=== PATIENT | female | born 1995 | race Caucasian/White ===

== ENCOUNTER 2020-03-01 15:51 | Inpatient (IN) | payer OTHER ==
[2020-03-01] MEDS ORDERED: Betamethasone Acetate/Betamethasone Sod Phosphate 30 MG/5 ML MDV IM ONE (17:31)
[2020-03-01] MEDS ORDERED: Labetalol 100 MG Tab PO ONE (17:37)
[2020-03-01] MEDS ORDERED: Nalbuphine 10 MG/ML Syringe IVPUSH PRN (17:38)
[2020-03-01] MEDS ORDERED: Sodium Chloride 0.9% 10 ML Syringe FLUSH PRN (17:38)
[2020-03-01] MEDS ORDERED: Magnesium Sulfate/Water 2 GM in Premix Bag 1 BAG IV ONE (17:38)
[2020-03-01] MEDS ORDERED: Magnesium Sulfate/Water 4 GM in Premix Bag 1 BAG IV ONE (17:38)
[2020-03-01] MEDS ORDERED: Ampicillin 2 GM in Sodium Chloride 0.9% 100 ML IV ONE (17:38)
[2020-03-01] MEDS ORDERED: Calcium Gluconate 10% 1 GM/10 ML SDV IV PRN (17:38)
[2020-03-01] MEDS ORDERED: Misoprostol 100 MCG Tab VAG PRN (17:38)
[2020-03-01] MEDS ORDERED: Ondansetron 4 MG/2 ML SDV IVPUSH PRN (17:38)
[2020-03-01] MEDS ORDERED: Ampicillin 1 GM in Sodium Chloride 0.9% 100 ML IV SCH (17:45)
[2020-03-01] MEDS ORDERED: Oxytocin/Lactated Ringers 10 UNIT/1,000 ML BAG IV SCH ×2 (17:45)
--- NOTE | 2020-03-01 17:47 | PCM.LDHP ---
L&D History of Present Illness - General Date of Service: 03/01/20 Admit Problem/Dx: Patient Status Order with Admit Dx/Problem 03/01/20 17:38 Patient Status [ADT] Routine Admission Diagnosis/Problem Admission Diagnosis/Problem Source of Information: Patient History Limitations: Reports: No Limitations - History of Present Illness Introduction:: Patient 25 y/o at 36 2/7 wks who presents from clinic for further monitoring. Was seen for her routine NST/appt for CHTN and was found to have a severe range BP and then several upper limit of mild range pressures. Initially in clinic was feeling well, but now notes a slight frontal headache she rates as a 4/10. Not sure if might be because she's hungry. No vision changes. No RUQ pain - Related Data Allergies/Adverse Reactions: Allergies Allergy/AdvReac Type Severity Reaction Status Date / Time No Known Allergies Allergy Verified 03/01/20 18:01 Past Medical History Cardiovascular History: Reports: Hypertension [employer]ENT History: Reports: : 1 Para: 0 LMP (Approximate): - Past Surgical History HEENT Surgical History: Reports: Naso-Sinus Surgery, Oral Surgery Social & Family History - Tobacco Use Smoking Status *Q: Never Smoker - Alcohol Use Alcohol Use History: No - Recreational Drug Use Recreational Drug Use: No H&P Review of Systems - Review of Systems: Review Of Systems: See Below General: Reports: No Symptoms Pulmonary: Reports: No Symptoms Cardiovascular: Reports: No Symptoms Gastrointestinal: Reports: No Symptoms Genitourinary: Reports: No Symptoms Musculoskeletal: Reports: No Symptoms Psychiatric: Reports: No Symptoms Neurological: Reports: Headache L&D Exam - Exam Exam: See Below - OB Specific Contraction Intensity: Irritability Movement: Active Heart Tones: Present Heart Tones per Min: 130 Heart Rate (FHR) Variability: Moderate (6-25 bmp) Presentation: Vertex - Joyner Score Joyner Score Cervix Position: Midposition Joyner Score Consistency: Medium Joyner Score Effacement: 51-70% Joyner Score Dilation: 1-2 cm Joyner Score 's Station: -2 Joyner Score Total: 6 - Exam General: Alert, Oriented, Cooperative Lungs: Clear to Auscultation, Normal Respiratory Effort Cardiovascular: Regular Rate, Regular Rhythm GI/Abdominal Exam: Soft, Non-Tender Genitourinary: Normal external exam Extremities: Normal Inspection Skin: Warm, Dry, Intact Neurological: Hyperreflexia, Clonus (mostly noted on right ) DTR: 3+: Bicep (L), Bicep (R), Patella (L), Patella (R) - Patient Data Result Diagrams: 03/01/20 18:05 - Problem List (1) 36 weeks gestation of SNOMED Code(s): 50577658 ICD Code: Z3A.36 - 36 WEEKS GESTATION OF Status: Acute Current Visit: Yes (2) Pre-eclampsia superimposed on chronic hypertension SNOMED Code(s): 19629132, 63587212 ICD Code: O11.9 - PRE-EXISTING HYPERTENSION WITH PRE-ECLAMPSIA, UNSP TRIMESTER Status: Acute Current Visit: Yes Problem List Initiated/Reviewed/Updated: No Orders Last 24hrs: Active Orders 24 hr Category Date Time Status Patient Status [ADT] Routine ADT 03/01/20 17:38 Ordered Bedrest [RC] ASDIRECTED Care 03/01/20 17:38 Ordered Communication Order [RC] ASDIRECTED Care 03/01/20 17:38 Active Communication Order [RC] ASDIRECTED Care 03/01/20 17:38 Ordered Communication Order [RC] ASDIRECTED Care 03/01/20 17:38 Ordered Monitoring [RC] CONTINUOUS Care 03/01/20 17:38 Ordered Non Stress Test [RC] PER UNIT ROUTINE Care 03/01/20 17:38 Ordered Notify Provider Status Change [RC] ASDIRECTED Care 03/01/20 17:38 Ordered Notify Provider Vital Signs [RC] ASDIRECTED Care 03/01/20 17:38 Ordered Notify Provider [RC] ASDIRECTED Care 03/01/20 17:38 Ordered Notify Provider [RC] ASDIRECTED Care 03/01/20 17:38 Ordered Oxygen Therapy [RC] PRN Care 03/01/20 17:38 Ordered Peripheral IV Care [RC] . DIRECTED Care 03/01/20 17:39 Ordered Vaginal Exam [RC] ASDIRECTED Care 03/01/20 17:38 Ordered Vital Signs [RC] ASDIRECTED Care 03/01/20 17:38 Active Vital Signs [RC] ASDIRECTED Care 03/01/20 17:38 Ordered Regular Diet [DIET] Diet 03/01/20 Dinner Ordered CBC W/O DIFF,HEMOGRAM [HEME] Routine Lab 03/01/20 17:38 Ordered RAPID PLASMA REAGIN,RPR [CHEM] Routine Lab 03/01/20 17:38 Ordered TYPE AND SCREEN [BBK] Routine Lab 03/01/20 17:38 Ordered Ampicillin 1 gm Med 03/01/20 17:45 Ordered Sodium Chloride 0.9% [Normal Saline] 100 ml IV Q4H Ampicillin 2 gm Med 03/01/20 17:38 Ordered Sodium Chloride 0.9% [Normal Saline] 100 ml IV ONETIME Calcium Gluconate Med 03/01/20 17:38 Ordered 1 gm IV ASDIRECTED PRN Magnesium Sulfate/Water [Magnesium Sulfate in Water Med 03/01/20 17:38 Ordered Premix] 2 gm Premix Bag 1 bag IV ONETIME Magnesium Sulfate/Water [Magnesium Sulfate in Water Med 03/01/20 17:38 Ordered Premix] 4 gm Premix Bag 1 bag IV ONETIME Nalbuphine [Nubain] Med 03/01/20 17:38 Ordered 10 mg IVPUSH Q2H PRN Ondansetron [Zofran] Med 03/01/20 17:38 Ordered 4 mg IVPUSH Q4H PRN Oxytocin/Lactated Ringers [Pitocin in LR 10 Units/1,000 Med 03/01/20 17:45 Ordered ML] 10 unit in 1,000 ml IV .CONTINUOUS Oxytocin/Lactated Ringers [Pitocin in LR 10 Units/1,000 Med 03/01/20 17:45 Ordered ML] 10 unit in 1,000 ml IV TITRATE Sodium Chloride 0.9% [Saline Flush] Med 03/01/20 17:38 Ordered 10 ml FLUSH ASDIRECTED PRN miSOPROStoL [Cytotec] Med 03/01/20 17:38 Ordered 25 mcg VAG Q4H PRN Deep Tendon Reflexes [WOMSER] ASDIRECTED Oth 03/01/20 17:45 Ordered Medication Administration Instruction [OM.PC] Per Unit Oth 03/01/20 17:43 Ordered Routine Peripheral IV Insertion Adult [OM.PC] Routine Oth 03/01/20 17:38 Ordered Medication Orders Calcium Gluconate (Calcium Gluconate) 1 gm IV ASDIRECTED PRN PRN Reason: respiratory distress Oxytocin/Lactated Ringer's (Pitocin In Lr 10 Units/1,000 Ml) 10 unit in 1,000 mls @ 12 mls/hr IV TITRATE REGAN; Protocol Magnesium Sulfate 4 gm/ Premix 50 mls @ 200 mls/hr IV ONETIME ONE Stop: 03/01/20 17:52 Magnesium Sulfate 2 gm/ Premix 50 mls @ 300 mls/hr IV ONETIME ONE Stop: 03/01/20 17:47 Ampicillin Sodium 2 gm/ Sodium (Chloride) 100 mls @ 200 mls/hr IV ONETIME ONE Stop: 03/01/20 18:07 Ampicillin Sodium 1 gm/ Sodium (Chloride) 100 mls @ 200 mls/hr IV Q4H REGAN Oxytocin/Lactated Ringer's (Pitocin In Lr 10 Units/1,000 Ml) 10 unit in 1,000 mls @ 500 mls/hr IV .CONTINUOUS REGAN Misoprostol (Cytotec) 25 mcg VAG Q4H PRN PRN Reason: cervical ripening Nalbuphine HCl (Nubain) 10 mg IVPUSH Q2H PRN PRN Reason: Pain Ondansetron HCl (Zofran) 4 mg IVPUSH Q4H PRN PRN Reason: Nausea/Vomiting Sodium Chloride (Saline Flush) 10 ml FLUSH ASDIRECTED PRN PRN Reason: Keep Vein Open Assessment/Plan Comment:: * BP's are upper mild range and severe range. Severe range pressures along with headache and clonus concerning for superimposed preeclampsia. Will move forward with IOL. BMTZ to be given as patient 36 weeks. IOL to be done with cytotec initially. Pitocin and AROM when able. GBS collected earlier today in clinic. Will start Ampicillin for unknown status when more active. 6 gram magnesium bolus with then 2 grams per hour. Seizure precautions. 20 mg of IV labetalol now to treat BP's. Will repeat as needed. Patient and her agree.
[2020-03-01] MEDS ORDERED: Labetalol 100 MG/20 ML MDV IVPUSH ONE (17:49)
[2020-03-01] MEDS: Lactated Ringers 1,000 ML IV SCH (18:53)
[2020-03-01] MEDS: Magnesium Sulfate/Water 40 GM/1,000 ML BAG IV SCH (19:08)
[2020-03-01] MEDS: Misoprostol 25 MCG (1/4 of 100 MCG) Tab VAG PRN (19:58)
[2020-03-02] MEDS ORDERED: Lidocaine 1.5% with EPINEPHrine 1:200,000 5 ML Amp ONE
[2020-03-02] MEDS ORDERED: Phenylephrine/Normal Saline 100 MCG/ML 10 ML Syringe ONE ×4
[2020-03-02] MEDS: Misoprostol 25 MCG (1/4 of 100 MCG) Tab VAG PRN (00:29)
[2020-03-02] MEDS: Ampicillin 1 GM in Sodium Chloride 0.9% 100 ML IV SCH ×5 (05:23→17:20)
--- NOTE | 2020-03-02 06:16 | PCM.PNLD ---
Labor Progress Note - VS & Meds Vital Signs: Last Vital Signs Temp 36.8 C 03/01/20 17:00 Pulse 101 H 03/01/20 17:00 Resp 18 03/01/20 17:00 BP 154/84 H 03/01/20 17:00 Pulse Ox 100 03/01/20 17:00 Active Medications: Current Medications Calcium Gluconate (Calcium Gluconate) 1 gm IV ASDIRECTED PRN PRN Reason: respiratory distress Oxytocin/Lactated Ringer's (Pitocin In Lr 10 Units/1,000 Ml) 10 unit in 1,000 mls @ 12 mls/hr IV TITRATE REGAN; Protocol Last Admin: 03/02/20 05:20 Dose: 2 munits/min, 12 mls/hr Documented by: Oxytocin/Lactated Ringer's (Pitocin In Lr 10 Units/1,000 Ml) 10 unit in 1,000 mls @ 500 mls/hr IV .CONTINUOUS REGAN Lactated Ringer's (Ringers, Lactated) 1,000 mls @ 75 mls/hr IV TITRATE REGAN Last Admin: 03/01/20 18:53 Dose: 75 mls/hr Documented by: Magnesium Sulfate (Magnesium Sulfate In Water Premix) 40 gm in 1,000 mls @ 50 mls/hr IV ASDIRECTED REGNA Last Admin: 03/01/20 19:08 Dose: 50 mls/hr Documented by: Ampicillin Sodium 1 gm/ Sodium (Chloride) 100 mls @ 200 mls/hr IV Q4H REGAN Last Admin: 03/02/20 05:23 Dose: Not Given Documented by: Misoprostol (Cytotec) 25 mcg VAG Q4H PRN PRN Reason: cervical ripening Last Admin: 03/02/20 00:29 Dose: 25 mcg Documented by: Nalbuphine HCl (Nubain) 10 mg IVPUSH Q2H PRN PRN Reason: Pain Ondansetron HCl (Zofran) 4 mg IVPUSH Q4H PRN PRN Reason: Nausea/Vomiting Last Admin: 03/02/20 05:07 Dose: 4 mg Documented by: Sodium Chloride (Saline Flush) 10 ml FLUSH ASDIRECTED PRN PRN Reason: Keep Vein Open Discontinued Medications Betamethasone Acet/Betameth SodPhos (Celestone Soluspan 6 Mg/Ml) 12 mg IM ONETIME ONE Stop: 03/01/20 17:32 Last Admin: 03/01/20 18:02 Dose: 12 mg Documented by: Magnesium Sulfate 4 gm/ Premix 50 mls @ 200 mls/hr IV ONETIME ONE Stop: 03/01/20 17:52 Last Admin: 03/01/20 18:42 Dose: 200 mls/hr Documented by: Magnesium Sulfate 2 gm/ Premix 50 mls @ 300 mls/hr IV ONETIME ONE Stop: 03/01/20 17:47 Last Admin: 03/01/20 18:51 Dose: 300 mls/hr Documented by: Ampicillin Sodium 2 gm/ Sodium (Chloride) 100 mls @ 200 mls/hr IV ONETIME ONE Stop: 03/01/20 18:07 Last Admin: 03/02/20 05:10 Dose: 200 mls/hr Documented by: Ampicillin Sodium 1 gm/ Sodium (Chloride) 100 mls @ 200 mls/hr IV Q4H [facility] Last Admin: 03/01/20 19:59 Dose: Not Given Documented by: Labetalol HCl (Normodyne) 400 mg PO ONETIME ONE Stop: 03/01/20 17:38 Last Admin: 03/01/20 19:58 Dose: Not Given Documented by: Labetalol HCl (Normodyne) 20 mg IVPUSH ONETIME ONE; Protocol Stop: 03/01/20 17:50 Last Admin: 03/01/20 18:03 Dose: 20 mg Documented by: Misoprostol (Cytotec) 25 mcg VAG Q4H PRN PRN Reason: cervical ripening - Uterine Contractions Uterine Monitoring Mode: External [place] Contraction Intensity: Mild - Monitoring Monitor Mode: External Ultrasound Heart Rate (FHR) Baseline: 145 Heart Rate (FHR) Variability: Moderate (6-25 bmp) Accelerations: Present, 15x15 Decelerations: None Strip Review: Category I - Vaginal Exam Dilation (cm): 2 Effacement (Percent): 60 Cervical Position: Midposition - Labor Progress (Free Text) Labor Progress: Patient doing well. Received 2 doses of Cytotec overnight. Just started on Pitocin and Ampicillin in the last 1.5 hours or so. Rates contractions as a 2/10. Headache from last night resolved. Feels ok on the magnesium. No other concerns. BP's mostly upper mild range. Did just have a severe range BP, but was a calf BP. Will move fluids/lines and try to take from upper arm.
[2020-03-02] MEDS ORDERED: ePHEDrine 50 MG/ML SDV IVPUSH PRN (07:17)
[2020-03-02] MEDS ORDERED: diphenhydrAMINE 50 MG/ML SDV IVPUSH PRN (07:17)
[2020-03-02] MEDS ORDERED: fentaNYL 100 MCG/2 ML SDV EPIDUR PRN (07:17)
[2020-03-02] MEDS ORDERED: Bupivacaine/fentaNYL/NS 100 ML Bag EPIDUR PRN (07:17)
[2020-03-02] MEDS ORDERED: Oxytocin/Lactated Ringers 20 UNIT/1,000 ML BAG IV SCH (11:00)
--- NOTE | 2020-03-02 11:12 | PCM.PREANE ---
Preanesthetic Assessment - Procedure Proposed Procedure: Continuous labor epidural - Anesthesia/Transfusion/Family Hx Anesthesia History: No Prior Anesthesia Transfusion History: No Prior Transfusion(s) - Review of Systems General: No Symptoms Pulmonary: No Symptoms Cardiovascular: No Symptoms Gastrointestinal: No Symptoms Neurological: No Symptoms Other: Reports: None - Physical Assessment Vital Signs: Last Vital Signs Temp 98.2 F 03/01/20 17:00 Pulse 101 H 03/01/20 17:00 Resp 18 03/01/20 17:00 BP 154/84 H 03/01/20 17:00 Pulse Ox 100 03/01/20 17:00 Height: 1.65 m Weight: 127.006 kg ASA Class: 3 (BMI>46, piHTN) Mental Status: Alert & Oriented x3 Airway Class: Mallampati = 1 Dentition: Reports: Normal Dentition Thyro-Mental Finger Breadths: 3 Mouth Opening Finger Breadths: 3 ROM/Head Extension: Full Lungs: Clear to Auscultation, Normal Respiratory Effort Cardiovascular: Regular Rate, Regular Rhythm - Lab Values: Laboratory Last Values WBC 15.59 K/mm3 (3.98-10.04) H 03/01/20 18:05 RBC 4.08 M/mm3 (3.98-5.22) 03/01/20 18:05 Hgb 12.0 gm/dl (11.2-15.7) 03/01/20 18:05 Hct 36.8 % (34.1-44.9) 03/01/20 18:05 MCV 90.2 fl (79.4-94.8) 03/01/20 18:05 MCH 29.4 pg (25.6-32.2) 03/01/20 18:05 MCHC 32.6 g/dl (32.2-35.5) 03/01/20 18:05 RDW Std Deviation 42.4 fL (36.4-46.3) 03/01/20 18:05 Plt Count 326 K/mm3 (182-369) 03/01/20 18:05 MPV 10.4 fl (9.4-12.3) 03/01/20 18:05 RPR Non-reactive (NONREACTIVE) 03/01/20 18:05 COVID-19 ([facility]) Negative (NEGATIVE) 03/01/20 20:45 Blood Type O POSITIVE 03/01/20 18:05 Gel Antibody Screen Negative 03/01/20 18:05 - Allergies Allergies/Adverse Reactions: Allergies Allergy/AdvReac Type Severity Reaction Status Date / Time kiwi Allergy Hives Verified 03/01/20 21:15 strawberry Allergy Hives Verified 03/01/20 21:15 - Acknowledgements Anesthesia Type Planned: Epidural Pt an Appropriate Candidate for the Planned Anesthesia: Yes Alternatives and Risks of Anesthesia Discussed w Pt/Guardian: Yes Pt/Guardian Understands and Agrees with Anesthesia Plan: Yes PreAnesthesia Questionnaire HEENT History: Reports: Impaired Vision Cardiovascular History: Reports: Hypertension (preexisting, also piHTN) 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: - Past Surgical History HEENT Surgical History: Reports: Naso-Sinus Surgery, Oral Surgery - SUBSTANCE USE Smoking Status *Q: Never Smoker Second Hand Smoke Exposure: No Recreational Drug Use History: No - HOME MEDS Home Medications: Home Meds Clobetasol Propionate 1 applic TOP DAILY PRN 03/01/20 [History] No122/Iron/Folic Acid [ Multi Tablet] 1 tab PO DAILY 03/01/20 [History] - CURRENT (IN HOUSE) MEDS Current Meds: Current Medications Calcium Gluconate (Calcium Gluconate) 1 gm IV ASDIRECTED PRN PRN Reason: respiratory distress Diphenhydramine HCl (Benadryl) 25 mg IVPUSH Q6H PRN PRN Reason: pruritis Ephedrine Sulfate (Ephedrine Sulfate) 5 mg IVPUSH ASDIRECTED PRN PRN Reason: Hypotension Fentanyl (Sublimaze) 100 mcg EPIDUR Q3H PRN PRN Reason: Pain Fentanyl/Bupivacaine HCl (Fentanyl/Bupivacaine/Ns 2 Mcg-0.125% 100 Ml) 100 ml EPIDUR ASDIRECTED PRN PRN Reason: Pain Oxytocin/Lactated Ringer's (Pitocin In Lr 10 Units/1,000 Ml) 10 unit in 1,000 mls @ 500 mls/hr IV .CONTINUOUS REGAN Lactated Ringer's (Ringers, Lactated) 1,000 mls @ 75 mls/hr IV TITRATE REGAN Last Infusion: 03/02/20 08:25 Dose: Infused Documented by: Magnesium Sulfate (Magnesium Sulfate In Water Premix) 40 gm in 1,000 mls @ 50 mls/hr IV ASDIRECTED REGAN Last Admin: 03/01/20 19:08 Dose: 50 mls/hr Documented by: Ampicillin Sodium 1 gm/ Sodium (Chloride) 100 mls @ 200 mls/hr IV Q4H REGAN Last Admin: 03/02/20 09:00 Dose: 200 mls/hr Documented by: Oxytocin/Lactated Ringer's (Pitocin In Lr 20 Units/1,000 Ml) 20 unit in 1,000 mls @ 21 mls/hr IV TITRATE REGAN; Protocol Misoprostol (Cytotec) 25 mcg VAG Q4H PRN PRN Reason: cervical ripening Last Admin: 03/02/20 00:29 Dose: 25 mcg Documented by: Nalbuphine HCl (Nubain) 10 mg IVPUSH Q2H PRN PRN Reason: Pain Ondansetron HCl (Zofran) 4 mg IVPUSH Q4H PRN PRN Reason: Nausea/Vomiting Last Admin: 03/02/20 05:07 Dose: 4 mg Documented by: Sodium Chloride (Saline Flush) 10 ml FLUSH ASDIRECTED PRN PRN Reason: Keep Vein Open Discontinued Medications Betamethasone Acet/Betameth SodPhos (Celestone Soluspan 6 Mg/Ml) 12 mg IM ONETIME ONE Stop: 03/01/20 17:32 Last Admin: 03/01/20 18:02 Dose: 12 mg Documented by: Oxytocin/Lactated Ringer's (Pitocin In Lr 10 Units/1,000 Ml) 10 unit in 1,000 mls @ 12 mls/hr IV TITRATE REGAN; Protocol Last Titration: 03/02/20 08:25 Dose: 8 munits/min, 48 mls/hr Documented by: Magnesium Sulfate 4 gm/ Premix 50 mls @ 200 mls/hr IV ONETIME ONE Stop: 03/01/20 17:52 Last Admin: 03/01/20 18:42 Dose: 200 mls/hr Documented by: Magnesium Sulfate 2 gm/ Premix 50 mls @ 300 mls/hr IV ONETIME ONE Stop: 03/01/20 17:47 Last Admin: 03/01/20 18:51 Dose: 300 mls/hr Documented by: Ampicillin Sodium 2 gm/ Sodium (Chloride) 100 mls @ 200 mls/hr IV ONETIME ONE Stop: 03/01/20 18:07 Last Admin: 03/02/20 05:10 Dose: 200 mls/hr Documented by: Ampicillin Sodium 1 gm/ Sodium (Chloride) 100 mls @ 200 mls/hr IV Q4H REGAN Last Admin: 03/01/20 19:59 Dose: Not Given Documented by: Ampicillin Sodium 1 gm/ Sodium (Chloride) 100 mls @ 200 mls/hr IV Q4H [facility] Last Admin: 03/02/20 05:23 Dose: Not Given Documented by: Labetalol HCl (Normodyne) 400 mg PO ONETIME ONE Stop: 03/01/20 17:38 Last Admin: 03/01/20 19:58 Dose: Not Given Documented by: Labetalol HCl (Normodyne) 20 mg IVPUSH ONETIME ONE; Protocol Stop: 03/01/20 17:50 Last Admin: 03/01/20 18:03 Dose: 20 mg Documented by: Misoprostol (Cytotec) 25 mcg VAG Q4H PRN PRN Reason: cervical ripening
[2020-03-02] MEDS: Lactated Ringers 1,000 ML IV SCH ×2 (11:33→12:52)
--- NOTE | 2020-03-02 12:42 | PCM.SN.2 ---
- Free Text/Narrative Note: 1230 After patient's epidural BP's dropped to 60's/30's. Patient with variables and some recurrent late decelerations after this. Paused magnesium. Initially dropped Pitocin from 14 to 7 and then stopped. Given 500 cc bolus of LR. This in combination with several doses of ephedrine did bring BP's back up and all owed resolution of lates and variables. Will allow recovery for a time and then restart medications. Olga Tello MD
--- NOTE | 2020-03-02 14:34 | PCM.PNLD ---
Labor Progress Note - VS & Meds Vital Signs: Last Vital Signs Temp 36.8 C 03/01/20 17:00 Pulse 101 H 03/01/20 17:00 Resp 18 03/01/20 17:00 BP 154/84 H 03/01/20 17:00 Pulse Ox 100 03/01/20 17:00 Active Medications: Current Medications Calcium Gluconate (Calcium Gluconate) 1 gm IV ASDIRECTED PRN PRN Reason: respiratory distress Diphenhydramine HCl (Benadryl) 25 mg IVPUSH Q6H PRN PRN Reason: pruritis Ephedrine Sulfate (Ephedrine Sulfate) 5 mg IVPUSH ASDIRECTED PRN PRN Reason: Hypotension Fentanyl (Sublimaze) 100 mcg EPIDUR Q3H PRN PRN Reason: Pain Last Admin: 03/02/20 11:28 Dose: 100 mcg Documented by: Fentanyl/Bupivacaine HCl (Fentanyl/Bupivacaine/Ns 2 Mcg-0.125% 100 Ml) 100 ml EPIDUR ASDIRECTED PRN PRN Reason: Pain Last Admin: 03/02/20 11:29 Dose: 100 ml Documented by: Oxytocin/Lactated Ringer's (Pitocin In Lr 10 Units/1,000 Ml) 10 unit in 1,000 mls @ 500 mls/hr IV .CONTINUOUS REGAN Lactated Ringer's (Ringers, Lactated) 1,000 mls @ 75 mls/hr IV TITRATE REGAN Last Admin: 03/02/20 12:52 Dose: 27 mls/hr Documented by: Magnesium Sulfate (Magnesium Sulfate In Water Premix) 40 gm in 1,000 mls @ 50 mls/hr IV ASDIRECTED REGAN Last Admin: 03/01/20 19:08 Dose: 50 mls/hr Documented by: Ampicillin Sodium 1 gm/ Sodium (Chloride) 100 mls @ 200 mls/hr IV Q4H REGAN Last Admin: 03/02/20 12:53 Dose: 200 mls/hr Documented by: Oxytocin/Lactated Ringer's (Pitocin In Lr 20 Units/1,000 Ml) 20 unit in 1,000 mls @ 21 mls/hr IV TITRATE REGAN; Protocol Last Admin: 03/02/20 11:31 Dose: 21 mls/hr Documented by: Misoprostol (Cytotec) 25 mcg VAG Q4H PRN PRN Reason: cervical ripening Last Admin: 03/02/20 00:29 Dose: 25 mcg Documented by: Nalbuphine HCl (Nubain) 10 mg IVPUSH Q2H PRN PRN Reason: Pain Ondansetron HCl (Zofran) 4 mg IVPUSH Q4H PRN PRN Reason: Nausea/Vomiting Last Admin: 03/02/20 05:07 Dose: 4 mg Documented by: Sodium Chloride (Saline Flush) 10 ml FLUSH ASDIRECTED PRN PRN Reason: Keep Vein Open Discontinued Medications Betamethasone Acet/Betameth SodPhos (Celestone Soluspan 6 Mg/Ml) 12 mg IM ONETIME ONE Stop: 03/01/20 17:32 Last Admin: 03/01/20 18:02 Dose: 12 mg Documented by: Oxytocin/Lactated Ringer's (Pitocin In Lr 10 Units/1,000 Ml) 10 unit in 1,000 mls @ 12 mls/hr IV TITRATE [facility]; Protocol Last Titration: 03/02/20 08:25 Dose: 8 munits/min, 48 mls/hr Documented by: Magnesium Sulfate 4 gm/ Premix 50 mls @ 200 mls/hr IV ONETIME ONE Stop: 03/01/20 17:52 Last Admin: 03/01/20 18:42 Dose: 200 mls/hr Documented by: Magnesium Sulfate 2 gm/ Premix 50 mls @ 300 mls/hr IV ONETIME ONE Stop: 03/01/20 17:47 Last Admin: 03/01/20 18:51 Dose: 300 mls/hr Documented by: Ampicillin Sodium 2 gm/ Sodium (Chloride) 100 mls @ 200 mls/hr IV ONETIME ONE Stop: 03/01/20 18:07 Last Admin: 03/02/20 05:10 Dose: 200 mls/hr Documented by: Ampicillin Sodium 1 gm/ Sodium (Chloride) 100 mls @ 200 mls/hr IV Q4H [facility] Last Admin: 03/01/20 19:59 Dose: Not Given Documented by: Ampicillin Sodium 1 gm/ Sodium (Chloride) 100 mls @ 200 mls/hr IV Q4H REGAN Last Admin: 03/02/20 13:53 Dose: Not Given Documented by: Labetalol HCl (Normodyne) 400 mg PO ONETIME ONE Stop: 03/01/20 17:38 Last Admin: 03/01/20 19:58 Dose: Not Given Documented by: Labetalol HCl (Normodyne) 20 mg IVPUSH ONETIME ONE; Protocol Stop: 03/01/20 17:50 Last Admin: 03/01/20 18:03 Dose: 20 mg Documented by: Misoprostol (Cytotec) 25 mcg VAG Q4H PRN PRN Reason: cervical ripening - Uterine Contractions Uterine Monitoring Mode: External [place] Contraction Intensity: Mild to Moderate - Monitoring Monitor Mode: External Ultrasound Heart Rate (FHR) Baseline: 135 Heart Rate (FHR) Variability: Moderate (6-25 bmp) Accelerations: Present, 15x15 Decelerations: None Strip Review: Category I - Vaginal Exam Dilation (cm): 3-4 Effacement (Percent): 75 Station: -2 Cervical Position: Midposition - Labor Progress (Free Text) Labor Progress: Patient doing well. Able to restart pitocin. At 6 currently. Patient still with intermittently low BP's which are being treated with phenylephrine. Have not yet restarted Magnesium, but plan to when able. Patient agrees with this plan. 2nd BMTZ tonight. Continue Ampicillin for GBS unknown status. Will plan on signing out to Dr. Garcia later this PM
[2020-03-02] MEDS: Magnesium Sulfate/Water 40 GM/1,000 ML BAG IV SCH (15:41)
[2020-03-02] MEDS ORDERED: Betamethasone Acetate/Betamethasone Sod Phosphate 30 MG/5 ML MDV IM ONE (18:00)
--- NOTE | 2020-03-02 19:26 | PCM.SN.2 ---
- Free Text/Narrative Note: Stage I - Patient presented for induction for chronic htn with superimposed pre- ecclampsia. Progressed to complete with overall reassuring FHT. Magnesium. Epidural. Stage II - of viable female, weight 6#8oz, 01/11 at 1853. Head delivered in controlled manner over intact perineum. Body and shoulders atraumatically. To maternal abdomen. Positive cry. Cord clamped and cut. Stage III - of intact placenta 3vc. EBL 500. 1st degree midline laceration repaired with 3-0 vicryl.
[2020-03-02] MEDS ORDERED: Ibuprofen 600 MG Tab PO PRN (20:08)
[2020-03-02] MEDS ORDERED: Witch Hazel Medicated Pads 40/Jar TOP PRN (20:08)
[2020-03-02] MEDS ORDERED: Benzocaine/Menthol 20%-0.5% Spray 56 GM Canister TOP PRN (20:34)
[2020-03-02] MEDS ORDERED: Acetaminophen 325 MG Tab PO PRN (20:35)
[2020-03-02] MEDS ORDERED: Misoprostol 200 MCG Tab PO STA (21:28)
--- NOTE | 2020-03-03 08:30 | PCM.PNPP ---
- General Info Date of Service: 03/03/20 Subjective Update: 25 year old with severe pre-e Magnesium discontinued over night related to severe bleeding Functional Status: Reports: Pain Controlled - Review of Systems General: Reports: No Symptoms HEENT: Reports: No Symptoms Pulmonary: Reports: No Symptoms Cardiovascular: Reports: No Symptoms Gastrointestinal: Reports: No Symptoms Genitourinary: Reports: No Symptoms Musculoskeletal: Reports: No Symptoms Skin: Reports: No Symptoms Neurological: Reports: No Symptoms Psychiatric: Reports: No Symptoms - General Info Date of Service: 03/03/20 - Patient Data Vital Signs - Most Recent: Last Vital Signs Temp 37.1 C 03/03/20 04:31 Pulse 127 H 03/03/20 00:16 Resp 14 03/03/20 04:31 BP 144/77 H 03/03/20 04:31 Pulse Ox 100 03/02/20 23:11 Weight - Most Recent: 127.006 kg I&O - Last 24 Hours: Intake & Output 03/02/20 03/03/20 03/03/20 22:59 06:59 14:59 Intake Total 4500 1000 Output Total 425 200 Balance 4075 800 Lab Results - Last 24 Hours: Laboratory Results - last 24 hr 03/03/20 Range/Units 06:00 WBC 25.99 H (3.98-10.04) K/mm3 RBC 2.97 L (3.98-5.22) M/mm3 Hgb 8.7 L D (11.2-15.7) gm/dl Hct 27.1 L (34.1-44.9) % MCV 91.2 (79.4-94.8) fl MCH 29.3 (25.6-32.2) pg MCHC 32.1 L (32.2-35.5) g/dl RDW Std Deviation 42.3 (36.4-46.3) fL Plt Count 358 (182-369) K/mm3 MPV 10.4 (9.4-12.3) fl Med Orders - Current: Current Medications Acetaminophen (Tylenol) 650 mg PO Q6H PRN PRN Reason: Pain Last Admin: 03/02/20 22:21 Dose: 650 mg Documented by: Benzocaine/Menthol (Dermoplast Pain Relief [place]) 1 gm TOP ASDIRECTED PRN PRN Reason: Perineal Comfort Measure Magnesium Sulfate (Magnesium Sulfate In Water Premix) 40 gm in 1,000 mls @ 50 mls/hr IV ASDIRECTED REGAN Last Infusion: 03/02/20 23:15 Dose: 0 mls/hr Documented by: Ibuprofen (Motrin) 600 mg PO Q6H PRN PRN Reason: Mild pain or fever Last Admin: 03/02/20 20:00 Dose: 600 mg Documented by: Jarvis Ruby ([facility]) 1 pad TOP ASDIRECTED PRN PRN Reason: Pain Discontinued Medications Betamethasone Acet/Betameth SodPhos (Celestone Soluspan 6 Mg/Ml) 12 mg IM ONETIME ONE Stop: 03/01/20 17:32 Last Admin: 03/01/20 18:02 Dose: 12 mg Documented by: Betamethasone Acet/Betameth SodPhos (Celestone Soluspan 6 Mg/Ml) 12 mg IM ONETIME ONE Stop: 03/02/20 18:01 Last Admin: 03/02/20 17:21 Dose: 12 mg Documented by: Calcium Gluconate (Calcium Gluconate) 1 gm IV ASDIRECTED PRN PRN Reason: respiratory distress Diphenhydramine HCl (Benadryl) 25 mg IVPUSH Q6H PRN PRN Reason: pruritis Ephedrine Sulfate (Ephedrine Sulfate) 5 mg IVPUSH ASDIRECTED PRN PRN Reason: Hypotension Fentanyl (Sublimaze) 100 mcg EPIDUR Q3H PRN PRN Reason: Pain Last Admin: 03/02/20 11:28 Dose: 100 mcg Documented by: Fentanyl/Bupivacaine HCl (Fentanyl/Bupivacaine/Ns 2 Mcg-0.125% 100 Ml) 100 ml EPIDUR ASDIRECTED PRN PRN Reason: Pain Last Admin: 03/02/20 11:29 Dose: 100 ml Documented by: Oxytocin/Lactated Ringer's (Pitocin In Lr 10 Units/1,000 Ml) 10 unit in 1,000 mls @ 12 mls/hr IV TITRATE REGAN; Protocol Last Titration: 03/02/20 08:25 Dose: 8 munits/min, 48 mls/hr Documented by: Magnesium Sulfate 4 gm/ Premix 50 mls @ 200 mls/hr IV ONETIME ONE Stop: 03/01/20 17:52 Last Admin: 03/01/20 18:42 Dose: 200 mls/hr Documented by: Magnesium Sulfate 2 gm/ Premix 50 mls @ 300 mls/hr IV ONETIME ONE Stop: 03/01/20 17:47 Last Admin: 03/01/20 18:51 Dose: 300 mls/hr Documented by: Ampicillin Sodium 2 gm/ Sodium (Chloride) 100 mls @ 200 mls/hr IV ONETIME ONE Stop: 03/01/20 18:07 Last Admin: 03/02/20 05:10 Dose: 200 mls/hr Documented by: Ampicillin Sodium 1 gm/ Sodium (Chloride) 100 mls @ 200 mls/hr IV Q4H REGAN Last Admin: 03/01/20 19:59 Dose: Not Given Documented by: Oxytocin/Lactated Ringer's (Pitocin In Lr 10 Units/1,000 Ml) 10 unit in 1,000 mls @ 500 mls/hr IV .CONTINUOUS REGAN Lactated Ringer's (Ringers, Lactated) 1,000 mls @ 75 mls/hr IV TITRATE REGAN Last Admin: 03/02/20 12:52 Dose: 27 mls/hr Documented by: Ampicillin Sodium 1 gm/ Sodium (Chloride) 100 mls @ 200 mls/hr IV Q4H REGAN Last Admin: 03/02/20 13:53 Dose: Not Given Documented by: Ampicillin Sodium 1 gm/ Sodium (Chloride) 100 mls @ 200 mls/hr IV Q4H REGAN Last Admin: 03/02/20 17:20 Dose: 200 mls/hr Documented by: Oxytocin/Lactated Ringer's (Pitocin In Lr 20 Units/1,000 Ml) 20 unit in 1,000 mls @ 21 mls/hr IV TITRATE REGAN; Protocol Last Admin: 03/02/20 11:31 Dose: 21 mls/hr Documented by: Labetalol HCl (Normodyne) 400 mg PO ONETIME ONE Stop: 03/01/20 17:38 Last Admin: 03/01/20 19:58 Dose: Not Given Documented by: Labetalol HCl (Normodyne) 20 mg IVPUSH ONETIME ONE; Protocol Stop: 03/01/20 17:50 Last Admin: 03/01/20 18:03 Dose: 20 mg Documented by: Misoprostol (Cytotec) 25 mcg VAG Q4H PRN PRN Reason: cervical ripening Misoprostol (Cytotec) 25 mcg VAG Q4H PRN PRN Reason: cervical ripening Last Admin: 03/02/20 00:29 Dose: 25 mcg Documented by: Misoprostol (Cytotec) 600 mcg PO STAT STA Stop: 03/02/20 21:29 Last Admin: 03/02/20 21:36 Dose: 600 mcg Documented by: Nalbuphine HCl (Nubain) 10 mg IVPUSH Q2H PRN PRN Reason: Pain Ondansetron HCl (Zofran) 4 mg IVPUSH Q4H PRN PRN Reason: Nausea/Vomiting Last Admin: 03/02/20 05:07 Dose: 4 mg Documented by: Sodium Chloride (Saline Flush) 10 ml FLUSH ASDIRECTED PRN PRN Reason: Keep Vein Open - Infant Interaction Support Person: - Recovery Exam Fundal Tone: Firm Fundal Level: 1 Fingerbreadths Below Umbilicus Fundal Placement: Midline Lochia Amount: Small Lochia Color: Rubra/Red Perineum Description: Other (see below) Other Perinuem Description: 1st degree with repair Episiotomy/Laceration: Approximated Bladder Status: Voiding Urinary Elimination: Voided - Problem List Review Problem List Initiated/Reviewed/Updated: Yes - My Orders Last 24 Hours: My Active Orders 03/02/20 19:16 Resuscitation Status Routine 03/02/20 20:08 Ibuprofen [Motrin] 600 mg PO Q6H PRN witch Thad [Tucks] 1 pad TOP ASDIRECTED PRN Heat Therapy [OM.PC] PRN 03/02/20 20:08 Activity as Tolerated [RC] PER UNIT ROUTINE Vital Signs [RC] Q4HR Assess Lochia [WOMSER] Per Unit Routine Assess Uterine Involution [WOMSER] Per Unit Routine Breast Pump [WOMSER] Per Unit Routine Medication Administration Instruction [OM.PC] Routine Perineal Care [OM.PC] Per Unit Routine Sitz Bath [OM.PC] Per Unit Routine 03/02/20 20:34 Benzocaine/Menthol [Dermoplast Pain Relief [place]] 1 gm TOP ASDIRECTED PRN 03/02/20 20:35 Acetaminophen [TylenoL] 650 mg PO Q6H PRN 03/03/20 08:27 CBC WITH AUTO DIFF [HEME] Routine 03/03/20 20:08 Heat Therapy [OM.PC] PRN 03/04/20 04:28 CBC WITH AUTO DIFF [HEME] Routine - Plan Plan:: * BP's are upper mild range and severe range. Severe range pressures along with headache and clonus concerning for superimposed preeclampsia. Will move forward with IOL. BMTZ to be given as patient 36 weeks. IOL to be done with cytotec initially. Pitocin and AROM when able. GBS collected earlier today in clinic. Will start Ampicillin for unknown status when more active. 6 gram magnesium bolus with then 2 grams per hour. Seizure precautions. 20 mg of IV labetalol now to treat BP's. Will repeat as needed. Patient and her agree.
--- NOTE | 2020-03-03 12:05 | PCM48HPAN ---
Post Anesthesia Note - EVALUATION WITHIN 48HRS OF ANESTHETIC Vital Signs in Normal Range: Yes Patient Participated in Evaluation: Yes Respiratory Function Stable: Yes Airway Patent: Yes Cardiovascular Function Stable: Yes Hydration Status Stable: Yes Pain Control Satisfactory: Yes Nausea and Vomiting Control Satisfactory: Yes Mental Status Recovered: Yes Vital Signs: Last Vital Signs Temp 98.8 F 03/03/20 04:31 Pulse 127 H 03/03/20 00:16 Resp 14 03/03/20 04:31 BP 144/77 H 03/03/20 04:31 Pulse Ox 100 03/02/20 23:11 - COMMENTS/OBSERVATIONS Free Text/Narrative:: Patient is on her day 1. Stated understanding about possible backaches following epidural anesthesia. Mentions having no back soreness at this time. Explanation given about importance of avoiding back straining. Denies any headache or lightheadedness at this time. Comfortable now. Ambulating, no difficulty urinating.
--- NOTE | 2020-03-04 07:31 | PCM.DCSUM1 ---
Discharge Summary - Hospital Course Diagnosis: Stroke: No - Discharge Data Discharge Date: 03/04/20 Discharge Disposition: Home, Self-Care 01 Condition: Good - Referral to Home Health Primary Care Physician: Olga Tello MD - Patient Instructions Diet: Usual Diet as Tolerated Activity: No Strenuous Activities Activity, Other: pelvic rest Driving: May Drive Today Showering/Bathing: May Shower Notify Provider of: Fever, Increased Pain, Swelling and Redness, Drainage, Nausea and/or Vomiting - Discharge Plan *PRESCRIPTION DRUG MONITORING PROGRAM REVIEWED*: No *COPY OF PRESCRIPTION DRUG MONITORING REPORT IN PATIENT [place]: No Home Medications: Home Meds Clobetasol Propionate 1 applic TOP DAILY PRN 03/01/20 [History] No122/Iron/Folic Acid [ Multi Tablet] 1 tab PO DAILY 03/01/20 [History] Referrals: Olga Tello MD [Primary Care Provider] - (2 weeks) - Discharge Summary/Plan Comment DC Time >30 min.: No - General Info Date of Service: 03/04/20 Functional Status: Reports: Pain Controlled - Review of Systems General: Reports: No Symptoms HEENT: Reports: No Symptoms Pulmonary: Reports: No Symptoms Cardiovascular: Reports: No Symptoms Gastrointestinal: Reports: No Symptoms Genitourinary: Reports: No Symptoms Musculoskeletal: Reports: No Symptoms Skin: Reports: No Symptoms Neurological: Reports: No Symptoms Psychiatric: Reports: No Symptoms - Patient Data Vitals - Most Recent: Last Vital Signs Temp 37.1 C 03/03/20 04:31 Pulse 108 H 03/03/20 20:38 Resp 14 03/03/20 20:38 BP 149/81 H 03/04/20 01:21 Pulse Ox 98 03/03/20 20:38 Weight - Most Recent: 127.006 kg I&O - Last 24 hours: Intake & Output 03/03/20 03/04/20 03/04/20 22:59 06:59 14:59 Output Total 500 Balance -500 Lab Results - Last 24 hrs: Laboratory Results - last 24 hr 03/04/20 Range/Units 06:10 WBC 15.98 H (3.98-10.04) K/mm3 RBC 2.63 L (3.98-5.22) M/mm3 Hgb 7.6 L (11.2-15.7) gm/dl Hct 24.7 L (34.1-44.9) % MCV 93.9 (79.4-94.8) fl MCH 28.9 (25.6-32.2) pg MCHC 30.8 L (32.2-35.5) g/dl RDW Std Deviation 44.2 (36.4-46.3) fL Plt Count 297 (182-369) K/mm3 MPV 9.8 (9.4-12.3) fl Neut % (Auto) 76.2 H (34.0-71.1) % Lymph % (Auto) 14.1 L (19.3-51.7) % [place] % (Auto) 8.1 (4.7-12.5) % Eos % (Auto) 0.1 L (0.7-5.8) Baso % (Auto) 0.1 (0.1-1.2) % Neut # (Auto) 12.17 H (1.56-6.13) K/mm3 Lymph # (Auto) 2.25 (1.18-3.74) K/mm3 [place] # (Auto) 1.30 H (0.24-0.36) K/mm3 Eos # (Auto) 0.02 L (0.04-0.36) K/mm3 Baso # (Auto) 0.01 (0.01-0.08) K/mm3 Med Orders - Current: Current Medications Acetaminophen (Tylenol) 650 mg PO Q6H PRN PRN Reason: Pain Last Admin: 03/02/20 22:21 Dose: 650 mg Documented by: Benzocaine/Menthol (Dermoplast Pain Relief [place]) 1 gm TOP ASDIRECTED PRN PRN Reason: Perineal Comfort Measure Last Admin: 03/03/20 10:08 Dose: 1 can Documented by: Magnesium Sulfate (Magnesium Sulfate In Water Premix) 40 gm in 1,000 mls @ 50 mls/hr IV ASDIRECTED REGAN Last Infusion: 03/02/20 23:15 Dose: 0 mls/hr Documented by: Ibuprofen (Motrin) 600 mg PO Q6H PRN PRN Reason: Mild pain or fever Last Admin: 03/02/20 20:00 Dose: 600 mg Documented by: Jarvis Ruby ([facility]) 1 pad TOP ASDIRECTED PRN PRN Reason: Pain Last Admin: 03/03/20 10:08 Dose: 1 container Documented by: Discontinued Medications Betamethasone Acet/Betameth SodPhos (Celestone Soluspan 6 Mg/Ml) 12 mg IM ONETIME ONE Stop: 03/01/20 17:32 Last Admin: 03/01/20 18:02 Dose: 12 mg Documented by: Betamethasone Acet/Betameth SodPhos (Celestone Soluspan 6 Mg/Ml) 12 mg IM ONETIME ONE Stop: 03/02/20 18:01 Last Admin: 03/02/20 17:21 Dose: 12 mg Documented by: Calcium Gluconate (Calcium Gluconate) 1 gm IV ASDIRECTED PRN PRN Reason: respiratory distress Diphenhydramine HCl (Benadryl) 25 mg IVPUSH Q6H PRN PRN Reason: pruritis Ephedrine Sulfate (Ephedrine Sulfate) 5 mg IVPUSH ASDIRECTED PRN PRN Reason: Hypotension Fentanyl (Sublimaze) 100 mcg EPIDUR Q3H PRN PRN Reason: Pain Last Admin: 03/02/20 11:28 Dose: 100 mcg Documented by: Fentanyl/Bupivacaine HCl (Fentanyl/Bupivacaine/Ns 2 Mcg-0.125% 100 Ml) 100 ml EPIDUR ASDIRECTED PRN PRN Reason: Pain Last Admin: 03/02/20 11:29 Dose: 100 ml Documented by: Oxytocin/Lactated Ringer's (Pitocin In Lr 10 Units/1,000 Ml) 10 unit in 1,000 mls @ 12 mls/hr IV TITRATE REGAN; Protocol Last Titration: 03/02/20 08:25 Dose: 8 munits/min, 48 mls/hr Documented by: Magnesium Sulfate 4 gm/ Premix 50 mls @ 200 mls/hr IV ONETIME ONE Stop: 03/01/20 17:52 Last Admin: 03/01/20 18:42 Dose: 200 mls/hr Documented by: Magnesium Sulfate 2 gm/ Premix 50 mls @ 300 mls/hr IV ONETIME ONE Stop: 03/01/20 17:47 Last Admin: 03/01/20 18:51 Dose: 300 mls/hr Documented by: Ampicillin Sodium 2 gm/ Sodium (Chloride) 100 mls @ 200 mls/hr IV ONETIME ONE Stop: 03/01/20 18:07 Last Admin: 03/02/20 05:10 Dose: 200 mls/hr Documented by: Ampicillin Sodium 1 gm/ Sodium (Chloride) 100 mls @ 200 mls/hr IV Q4H REGAN Last Admin: 03/01/20 19:59 Dose: Not Given Documented by: Oxytocin/Lactated Ringer's (Pitocin In Lr 10 Units/1,000 Ml) 10 unit in 1,000 mls @ 500 mls/hr IV .CONTINUOUS REGAN Lactated Ringer's (Ringers, Lactated) 1,000 mls @ 75 mls/hr IV TITRATE REGAN Last Admin: 03/02/20 12:52 Dose: 27 mls/hr Documented by: Ampicillin Sodium 1 gm/ Sodium (Chloride) 100 mls @ 200 mls/hr IV Q4H REGAN Last Admin: 03/02/20 13:53 Dose: Not Given Documented by: Ampicillin Sodium 1 gm/ Sodium (Chloride) 100 mls @ 200 mls/hr IV Q4H REGAN Last Admin: 03/02/20 17:20 Dose: 200 mls/hr Documented by: Oxytocin/Lactated Ringer's (Pitocin In Lr 20 Units/1,000 Ml) 20 unit in 1,000 mls @ 21 mls/hr IV TITRATE REGAN; Protocol Last Admin: 03/02/20 11:31 Dose: 21 mls/hr Documented by: Labetalol HCl (Normodyne) 400 mg PO ONETIME ONE Stop: 03/01/20 17:38 Last Admin: 03/01/20 19:58 Dose: Not Given Documented by: Labetalol HCl (Normodyne) 20 mg IVPUSH ONETIME ONE; Protocol Stop: 03/01/20 17:50 Last Admin: 03/01/20 18:03 Dose: 20 mg Documented by: Misoprostol (Cytotec) 25 mcg VAG Q4H PRN PRN Reason: cervical ripening Misoprostol (Cytotec) 25 mcg VAG Q4H PRN PRN Reason: cervical ripening Last Admin: 03/02/20 00:29 Dose: 25 mcg Documented by: Misoprostol (Cytotec) 600 mcg PO STAT STA Stop: 03/02/20 21:29 Last Admin: 03/02/20 21:36 Dose: 600 mcg Documented by: Nalbuphine HCl (Nubain) 10 mg IVPUSH Q2H PRN PRN Reason: Pain Ondansetron HCl (Zofran) 4 mg IVPUSH Q4H PRN PRN Reason: Nausea/Vomiting Last Admin: 03/02/20 05:07 Dose: 4 mg Documented by: Sodium Chloride (Saline Flush) 10 ml FLUSH ASDIRECTED PRN PRN Reason: Keep Vein Open - Exam General: Reports: Alert, Oriented HEENT: Reports: Pupils Equal, Pupils Reactive, EOMI, Mucous Membr. Moist/[place] Neck: Reports: Supple Lungs: Reports: Clear to Auscultation, Normal Respiratory Effort Cardiovascular: Reports: Regular Rate, Regular Rhythm GI/Abdominal Exam: Normal Bowel Sounds, Soft, Non-Tender, No Organomegaly, No Distention, No Abnormal Bruit, No Mass, Pelvis Stable Back Exam: Reports: Normal Inspection, Full Range of Motion Extremities: Normal Inspection, Normal Range of Motion, Non-Tender, No Pedal Edema, Normal Capillary Refill Skin: Reports: Warm, Dry, Intact Wound/Incisions: Reports: Healing Well Neurological: Reports: No New Focal Deficit Psy/Mental Status: Reports: Alert, Normal Affect, Normal Mood
== END 2020-03-04 14:10 | disposition home or self-care (01) | DRG 807 ==
LOC: JD.OBCHECK 15:51 → JD.OB 17:38 → OBSVTOIN 03-02 18:53 → JD.OB 03-02 18:54
PROVIDERS: ADMIT Obstetrics & Gynecology; ATTEND Obstetrics & Gynecology
PROC: 10E0XZZ Delivery of Products of Conception, External Approach (ICD-10-PCS; principal; 2020-03-02)
PROC: 0HQ9XZZ Repair Perineum Skin, External Approach (ICD-10-PCS; 2020-03-02)
DX: O11.4 Pre-existing hypertension with pre-eclampsia, complicating childbirth (principal); Z37.0 Single live birth; Z3A.36 36 weeks gestation of pregnancy; O99.89 Other specified diseases and conditions complicating pregnancy, childbirth and the puerperium; R51 Headache; Z20.828 Contact with and (suspected) exposure to other viral communicable diseases
CPT/HCPCS: 01967; 36415; 51701; 51702; 59025; 59409; 85025; 85027; 86592; 86850; 86900; 86901; A9270-GY; J0290; J0702; J2370; J2405; J2590; J3010; J3475; J3490; J7050; J7120; U0002

== ENCOUNTER 2025-05-15 13:56 | Inpatient (IN) | payer OTHER ==
[2025-05-15] MEDS ORDERED: Sodium Chloride 0.9% 10 ML Syringe FLUSH PRN (16:16)
[2025-05-15 16:27] LABS: BASOPHILS ABSOLUTE AUTO 0.0 K/mm3 (0.0-0.2); BASOPHILS PERCENT AUTO 0.2 % (0.0-1.0); EOSINOPHILS ABSOLUTE AUTO 0.0 K/mm3 (0.0-0.4); EOSINOPHILS PERCENT AUTO 0.0 % (0.0-6.0); IMMATURE GRAN ABSOLUTE AUTO 0.11 K/mm3 (0.00-0.05); IMMATURE GRAN PERCENT AUTO 0.6 % (0.0-0.4); LYMPHOCYTES ABSOLUTE AUTO 1.0 K/mm3 (1.0-4.8); LYMPHOCYTES PERCENT AUTO 5.2 % (24.0-44.0); MEAN PLATELET VOLUME 9.4 fl (9.4-12.3); MONOCYTES ABSOLUTE AUTO 0.9 K/mm3 (0.0-0.8); MONOCYTES PERCENT AUTO 4.6 % (0.0-8.0); NEUTROPHILS ABSOLUTE AUTO 17.7 K/mm3 (1.8-7.7); NEUTROPHILS PERCENT AUTO 89.4 % (41.0-71.0); NRBC ABSOLUTE 0.00 (0.00-0.02); NRBC PERCENT 0.0 % (0.0-0.2); PLATELET COUNT,PLT 410 K/mm3 (150-400); RED BLOOD CELL COUNT 5.27 M/mm3 (4.10-5.30); WHITE BLOOD CELL COUNT,WBC 19.74 K/mm3 (3.9-11.3)
[2025-05-15] MEDS: Iopamidol 612 MG/ML 100 ML Bottle IVPUSH ONE (16:27)
[2025-05-15] MEDS: Sodium Chloride 0.9% 10 ML Syringe FLUSH PRN (16:27)
[2025-05-15] MEDS: Ondansetron 4 MG/2 ML SDV IVPUSH ONE ×2 (16:36→19:16)
[2025-05-15 16:52] LABS: LACTIC ACID 0.9 mmol/L (0.4-2.0)
[2025-05-15 16:58] LABS: A/G RATIO 1.1 (1-2); ALANINE AMINOTRANSFERASE,ALT 24.0 U/L (14-59); ASPARTATE AMNIOTRANSFERASE,AST 10.0 U/L (15-37); BILIRUBIN TOTAL 1.2 mg/dL (0.2-1.0); BLOOD UREA NITROGEN,BUN 12.0 mg/dL (7-18); CARBON DIOXIDE,CO2 27.0 mEq/L (21-32); CHLORIDE,CL 105.0 mEq/L (98-107); CREATININE 0.8 mg/dL (0.55-1.02); EST CRCL DRUG DOSING (CG) 90.84 mL/min; ESTIMATED GFR 100.0 mL/min (>60); GLUCOSE RANDOM 114.0 mg/dL (70-99); POTASSIUM,K 3.2 mEq/L (3.5-5.1); PROTEIN TOTAL,TP 8.2 g/dl (6.4-8.2); SODIUM,NA 142.0 mEq/L (136-145)
[2025-05-15 18:05] LABS: APPEARANCE,URINE CLEAR (Clear); GLUCOSE,URINE NEGATIVE (Negative); OCCULT BLOOD,URINE 3+ (Negative)
[2025-05-15 18:40] LABS: EPITHELIAL CELLS,URINE 0-5 /hpf (0-5)
[2025-05-15] MEDS ORDERED: Dexamethasone 4 MG/ML 5 ML MDV ONE (19:47)
[2025-05-15] MEDS ORDERED: dexmedeTOMIDine HCl 200 MCG/2 ML SDV ONE (19:47)
[2025-05-15] MEDS ORDERED: Glycopyrrolate 0.2 MG/ML 2 ML SDV ONE (19:47)
[2025-05-15] MEDS ORDERED: Esmolol 100 MG/10 ML SDV ONE (19:47)
[2025-05-15] MEDS ORDERED: Ketamine HCL/NACL, ISO-OSM 50 MG/5 ML Syringe ONE (19:51)
[2025-05-15] MEDS: Heparin Sodium 5,000 Units/ML Vial SUBCUT ONE (19:54)
[2025-05-15] MEDS ORDERED: Morphine PF 10 MG/10 ML SDV ONE (20:17)
[2025-05-15] MEDS ORDERED: fentaNYL 100 MCG/2 ML SDV ONE ×2 (20:18→20:43)
[2025-05-15] MEDS ORDERED: Midazolam 1 MG/ML 2 ML SDV ONE (20:18)
[2025-05-15] MEDS ORDERED: Phenylephrine 1% 10 MG/ML SDV ONE (20:21)
[2025-05-15] MEDS ORDERED: Lactated Ringers 1,000 ML ONE ×2 (20:29)
[2025-05-15] MEDS ORDERED: propofoL 1,000 MG/100 ML 100 ML ONE (20:40)
[2025-05-15] MEDS ORDERED: Labetalol 100 MG/20 ML MDV ONE (20:56)
[2025-05-15] MEDS ORDERED: propofoL 500 MG/50 ML 50 ML ONE (20:59)
[2025-05-15] MEDS ORDERED: Propofol 200 MG/20 ML SDV ONE (21:35)
[2025-05-15] MEDS: Benzocaine 20% Topical Spray UD MUCMEM ONE (22:33)
[2025-05-15] MEDS ORDERED: diphenhydrAMINE 50 MG/ML SDV IVPUSH PRN (23:02)
[2025-05-15] MEDS ORDERED: Ondansetron 4 MG/2 ML SDV IVPUSH PRN (23:05)
[2025-05-16] MEDS: Ketorolac 30 MG/ML SDV IVPUSH SCH (00:07)
[2025-05-16] MEDS: Heparin Sodium 5,000 Units/ML Vial SUBCUT SCH (00:07)
[2025-05-16] MEDS: Lactated Ringers 1,000 ML IV SCH (04:56)
[2025-05-16 08:27] LABS: BASOPHILS ABSOLUTE AUTO 0.0 K/mm3 (0.0-0.2); BASOPHILS PERCENT AUTO 0.1 % (0.0-1.0); EOSINOPHILS ABSOLUTE AUTO 0.0 K/mm3 (0.0-0.4); EOSINOPHILS PERCENT AUTO 0.0 % (0.0-6.0); IMMATURE GRAN ABSOLUTE AUTO 0.08 K/mm3 (0.00-0.05); IMMATURE GRAN PERCENT AUTO 0.5 % (0.0-0.4); LYMPHOCYTES ABSOLUTE AUTO 1.2 K/mm3 (1.0-4.8); LYMPHOCYTES PERCENT AUTO 7.7 % (24.0-44.0); MEAN PLATELET VOLUME 9.3 fl (9.4-12.3); MONOCYTES ABSOLUTE AUTO 1.0 K/mm3 (0.0-0.8); MONOCYTES PERCENT AUTO 6.8 % (0.0-8.0); NEUTROPHILS ABSOLUTE AUTO 12.9 K/mm3 (1.8-7.7); NEUTROPHILS PERCENT AUTO 84.9 % (41.0-71.0); NRBC ABSOLUTE 0.00 (0.00-0.02); NRBC PERCENT 0.0 % (0.0-0.2); PLATELET COUNT,PLT 332 K/mm3 (150-400); RED BLOOD CELL COUNT 4.29 M/mm3 (4.10-5.30); WHITE BLOOD CELL COUNT,WBC 15.17 K/mm3 (3.9-11.3)
[2025-05-16 08:55] LABS: BLOOD UREA NITROGEN,BUN 12.0 mg/dL (7-18); CARBON DIOXIDE,CO2 30.0 mEq/L (21-32); CHLORIDE,CL 109.0 mEq/L (98-107); CREATININE 0.8 mg/dL (0.55-1.02); EST CRCL DRUG DOSING (CG) 90.84 mL/min; ESTIMATED GFR 100.0 mL/min (>60); GLUCOSE RANDOM 122.0 mg/dL (70-99); POTASSIUM,K 3.9 mEq/L (3.5-5.1); SODIUM,NA 145.0 mEq/L (136-145)
[2025-05-16] MEDS: Benzocaine 20% Oral Spray 59.2 ML Canister MUCMEM PRN (15:43)
[2025-05-17] MEDS: Lactated Ringers 1,000 ML IV SCH (21:22)
[2025-05-18 10:03] LABS: BASOPHILS ABSOLUTE AUTO 0.0 K/mm3 (0.0-0.2); BASOPHILS PERCENT AUTO 0.3 % (0.0-1.0); EOSINOPHILS ABSOLUTE AUTO 0.2 K/mm3 (0.0-0.4); EOSINOPHILS PERCENT AUTO 1.9 % (0.0-6.0); IMMATURE GRAN ABSOLUTE AUTO 0.06 K/mm3 (0.00-0.05); IMMATURE GRAN PERCENT AUTO 0.8 % (0.0-0.4); LYMPHOCYTES ABSOLUTE AUTO 1.9 K/mm3 (1.0-4.8); LYMPHOCYTES PERCENT AUTO 23.4 % (24.0-44.0); MEAN PLATELET VOLUME 9.2 fl (9.4-12.3); MONOCYTES ABSOLUTE AUTO 0.6 K/mm3 (0.0-0.8); MONOCYTES PERCENT AUTO 7.6 % (0.0-8.0); NEUTROPHILS ABSOLUTE AUTO 5.2 K/mm3 (1.8-7.7); NEUTROPHILS PERCENT AUTO 66.0 % (41.0-71.0); NRBC ABSOLUTE 0.00 (0.00-0.02); NRBC PERCENT 0.0 % (0.0-0.2); PLATELET COUNT,PLT 283 K/mm3 (150-400); RED BLOOD CELL COUNT 3.75 M/mm3 (4.10-5.30); WHITE BLOOD CELL COUNT,WBC 7.91 K/mm3 (3.9-11.3)
[2025-05-18 10:17] LABS: BLOOD UREA NITROGEN,BUN 10.0 mg/dL (7-18); CARBON DIOXIDE,CO2 32.0 mEq/L (21-32); CHLORIDE,CL 108.0 mEq/L (98-107); CREATININE 0.6 mg/dL (0.55-1.02); EST CRCL DRUG DOSING (CG) 121.13 mL/min; ESTIMATED GFR 122.0 mL/min (>60); GLUCOSE RANDOM 106.0 mg/dL (70-99); POTASSIUM,K 3.3 mEq/L (3.5-5.1); SODIUM,NA 144.0 mEq/L (136-145)
== END 2025-05-18 17:32 | disposition home or self-care (01) | DRG 330 ==
LOC: JD.ED 13:56 → JD.SDS 20:31 → JD.MS 23:00
PROVIDERS: ADMIT Surgery; ATTEND Surgery
PROC: 0WUF0JZ Supplement Abdominal Wall with Synthetic Substitute, Open Approach (ICD-10-PCS; principal; 2025-05-15 20:45)
PROC: 0DT80ZZ Resection of Small Intestine, Open Approach (ICD-10-PCS; principal; 2025-05-15 20:45)
DX: K42.0 Umbilical hernia with obstruction, without gangrene (principal); K56.7 Ileus, unspecified; H54.7 Unspecified visual loss; I10 Essential (primary) hypertension; I48.91 Unspecified atrial fibrillation; F32.A Depression, unspecified; Z86.16 Personal history of COVID-19; Z98.890 Other specified postprocedural states; Z88.8 Allergy status to other drugs, medicaments and biological substances; Z79.899 Other long term (current) drug therapy
CPT/HCPCS: 00790; 36415; 71045; 71045-26; 74177; 74177-26; 80048; 80053; 81001; 83605; 83690; 83735; 84703; 85025; 87040; 96365; 96372; 96374; 96375; 99140; 99284; 99285-25; A9270-GY; J1100; J1171; J1596; J1644; J1805; J1885; J1920; J2003; J2250; J2274; J2371; J2405; J2543; J2704; J3010; J3490; J7030; J7120; Q9967